=== PATIENT | female | born 1960 | race Caucasian/White ===

== ENCOUNTER 2024-06-02 10:43 | Emergency (ER) | payer BC ==
[2024-06-02] MEDS ORDERED: Sodium Chloride 0.9% 10 ML Syringe FLUSH PRN (11:08)
[2024-06-02 11:33] LABS: BASOPHILS PERCENT AUTO 0.3 % (0.0-1.0); EOSINOPHILS PERCENT AUTO 3.4 % (1.0-3.0); HEMATOCRIT 38.5 % (37.0-47.0); HEMOGLOBIN 12.8 g/dL (12.0-16.0); LYMPHOCYTES PERCENT AUTO 18.4 % (20.5-50.1); MEAN CORPUSCULAR HEMOGLOBIN 30.3 pg (27.0-34.0); MEAN CORPUSCULAR HGB CONC 33.2 g/dL (33.0-35.0); MONOCYTES PERCENT AUTO 11.6 % (2-8); NEUTROPHILS PERCENT AUTO 66.3 % (42.2-75.2); PLATELET COUNT,PLT 319 10^3/uL (150-450); RED BLOOD CELL COUNT 4.23 10^6/uL (4.2-5.4); WHITE BLOOD CELL COUNT,WBC 6.7 10^3/uL (5.0-10.0)
[2024-06-02 11:53] LABS: A/G RATIO 1.3; ALANINE AMINOTRANSFERASE,ALT 28 U/L (14-59); ALKALINE PHOSPHATASE 69 U/L (46-116); ANION GAP 10.4 mEq/L (7-13); ASPARTATE AMNIOTRANSFERASE,AST 18 U/L (15-37); BILIRUBIN TOTAL 0.7 mg/dL (0.2-1.0); BLOOD UREA NITROGEN,BUN 20 mg/dL (7-18); BUN/CREATININE RATIO 15.9 (No establ ref range); CALCIUM 10.1 mg/dL (8.5-10.1); CARBON DIOXIDE,CO2 29 mmol/L (21-32); CHLORIDE,CL 104 mmol/L (98-107); CREATININE 1.26 mg/dL (0.55-1.02); EST CRCL DRUG DOSING (CG) 40.59 mL/min; GLUCOSE RANDOM 98 mg/dL (70-99); LIPASE 44 U/L (16-77); POTASSIUM,K 3.4 mmol/L (3.5-5.1); PROTEIN TOTAL,TP 7.1 g/dL (6.4-8.2); SODIUM,NA 140 mmol/L (136-145)
[2024-06-02 11:57] LABS: C-REACTIVE PROTEIN < 0.50 ng/dL (<=0.50); ESTIMATED GFR 48 mL/min (>=60)
[2024-06-02] MEDS: Iopamidol 612 MG/ML 100 ML Bottle IVPUSH ONE (12:04)
[2024-06-02 12:13] LABS: INR 1.1 (0.9-1.2); PROTHROMBIN TIME 10.9 SEC (9.0-12.0); PTT,PARTIAL THROMBOPLSTIN TIME 24.4 SEC (22.0-34.0)
[2024-06-02] MEDS: Sodium Chloride 0.9% 1,000 ML IV ONE (13:01)
== END 2024-06-02 13:41 | disposition home or self-care (01) ==
LOC: DL.ED 10:43
DX: K57.30 Diverticulosis of large intestine without perforation or abscess without bleeding (principal); K59.00 Constipation, unspecified; N83.201 Unspecified ovarian cyst, right side; K76.9 Liver disease, unspecified; N17.9 Acute kidney failure, unspecified; I10 Essential (primary) hypertension
CPT/HCPCS: 36415; 74177; 80053; 81025; 83605; 83690; 85025; 85610; 85730; 86140; 96360; 99284; J7030; Q9967